=== PATIENT | male | born 1950 | race Caucasian/White ===

== ENCOUNTER 2019-08-29 20:34 | Inpatient (IN) | payer MEDICARE, OTHER ==
[~2019-08-29] VITALS: Ht 188 cm; Wt 142.4 kg
[~2019-08-29 20:34] MED LIST: ASPI1TAB PO; ASPI81TA45 PO; CARV12.543 PO; CARV6.252 PO; CETI10CA PO; HYDR-3342 PO; LEVO750T26 PO; LOSA1TAB19 PO; LOSA1TAB22 PO; NITR0.4T41 SL; OXYC-302 PO; PRED10TA14 PO; SPIR1TAB PO; SPIR25TA5 PO; TICA90TA PO
--- NOTE | 2019-08-29 20:59 | NUR ---
NEURO SURG CALLED [id number]
[2019-08-29] MEDS ORDERED: LEVETIRACETAM 500 MG in SODIUM CHLORIDE 0.9% 100 ML IV ONE (22:00)
[2019-08-29] MEDS ORDERED: SODIUM CHLORIDE FLUSH 10ML SYR IVF PRN (22:00)
[2019-08-29 22:26] LABS: PROTHROMBIN TIME 10.5 Seconds (9.6-11.5)
[2019-08-29] MEDS ORDERED: ONDANSETRON 2MG/ML, 2ML IVPush PRN (22:30)
--- NOTE | 2019-08-29 22:32 | NUR ---
PT RESTING IN BED WATCHING TV, PT A/O X4 WITH NO COMPLAINTS. PT PROVIDED A SANDWICH+CHIP+COOKIE FROM [employer] AT PT AND DR QUEEN.
[2019-08-30 00:05] VITALS: BP 131/60
[2019-08-30] MEDS ORDERED: IRBE1TAB13 PO (02:23)
[2019-08-30] MEDS ORDERED: ATOR-2 PO (02:23)
[2019-08-30 04:33] LABS: BASOPHILS # (AUTO) 0.03 x10^3/uL (0-0.1); BASOPHILS % (AUTO) 0 % (0-1); EOSINOPHILS # (AUTO) 0.04 x10^3/uL (0-0.4); EOSINOPHILS % (AUTO) 1 % (1-7); LYMPHOCYTES % (AUTO) 20 % (22-44); MD NO; MEAN CORPUSCULAR HEMOGLOBIN 32.9 pg (27.5-34.5); MEAN CORPUSCULAR HGB CONC 33.5 g/dL (33.2-36.2); MEAN CORPUSCULAR VOLUME 98.3 fL (81-97); MONOCYTES # (AUTO) 0.85 x10^3/uL (0.2-0.8); MONOCYTES % (AUTO) 11 % (2-9); NEUTROPHILS % (AUTO) 69 % (42-75); PLATELET COUNT 229 x10^3/uL (130-400); RED CELL DISTRIBUTION WIDTH 14.2 % (9.4-14.8)
[2019-08-30 04:46] LABS: ANION GAP 7 mmol/L (5-15); CHLORIDE 104 mmol/L (98-107); CREATININE 0.69 mg/dL (0.7-1.3)
[2019-08-30] MEDS ORDERED: ACETAMINOPHEN 325 MG TABLET PO ONE (05:00)
[2019-08-30] MEDS: LEVETIRACETAM 500 MG in SODIUM CHLORIDE 0.9% 100 ML IV SCH ×2 (08:58→20:43)
[2019-08-30 09:46] LABS: PLATELET (PFA) 213 x10^3/uL (130-400)
[2019-08-30] MEDS ORDERED: PHENYLEPHRINE 10 MG/ML ONE (11:00)
[2019-08-30] MEDS ORDERED: hydrALAzine 20 MG/ML, 1ML ONE (11:00)
[2019-08-30] MEDS ORDERED: ONDANSETRON 2MG/ML, 2ML ONE (11:00)
[2019-08-30] MEDS ORDERED: ROCURONIUM 10MG/ML,5ML ONE (11:00)
[2019-08-30] MEDS ORDERED: PROPOFOL 10 MG/ML, 20ML ONE (11:00)
[2019-08-30] MEDS ORDERED: SUGAMMADEX 200 MG/2 ML IVPush ONE (11:00)
[2019-08-30 11:18] LABS: ADP CARTRIDGE > 300 SECONDS (64-123)
[2019-08-30] MEDS ORDERED: THROMBIN 5,000 UNIT VIAL TP ONE ×2 (14:10→16:15)
[2019-08-30] MEDS ORDERED: BUPIVACAINE/PF 0.5% ONE (14:10)
[2019-08-30] MEDS ORDERED: BACITRACIN 50,000 UNIT ONE (14:10)
[2019-08-30] MEDS ORDERED: EPINEPHRINE 1 MG/ML, 1ML ONE (14:10)
[2019-08-30] MEDS ORDERED: FENTANYL PF 250 MCG/5ML ONE (14:35)
[2019-08-30] MEDS: hydrALAzine 20 MG/ML, 1ML IV PRN ×3 (14:38→20:28)
[2019-08-30] MEDS ORDERED: ACETAMINOPHEN 325 MG TABLET PO PRN ×3 (16:00→18:30)
[2019-08-30] MEDS ORDERED: hydrALAzine 20 MG/ML, 1ML IV PRN (16:00)
[2019-08-30] MEDS ORDERED: PROMETHAZINE 25 MG/ML, 1ML IV PRN (16:00)
[2019-08-30] MEDS ORDERED: HALOPERIDOL 5 MG/ML IV PRN (16:00)
[2019-08-30] MEDS ORDERED: FENTANYL PF 100 MCG/2ML IV PRN (16:00)
[2019-08-30] MEDS ORDERED: HYDROmorphone 2 MG/ML, 1ML IVPush PRN (16:00)
[2019-08-30] MEDS ORDERED: OXYcodone 5 MG/5 ML ORAL.SOL UDC PO PRN (16:00)
[2019-08-30] MEDS ORDERED: MEPERIDINE/PF 25MG/ML,1ML IVPush PRN (16:00)
[2019-08-30] MEDS ORDERED: BACITRACIN 50,000 UNIT IRRIG ONE (16:14)
[2019-08-30] MEDS ORDERED: BUPIVACAINE/PF 0.5% INFIL ONE (16:14)
[2019-08-30] MEDS ORDERED: THROMBIN (RECOMBINANT) 20,000 UNIT VIAL TP ONE ×2 (16:18→16:27)
[2019-08-30] MEDS ORDERED: BACITRACIN OINT 500U/GM, 15 GM ONE (16:44)
[2019-08-30] MEDS ORDERED: MEPERIDINE/PF 100 MG/ML ONE (17:03)
[2019-08-30 17:25] VITALS: BP 151/87
[2019-08-30 17:40] VITALS: BP 158/78
[2019-08-30 17:47] VITALS: BP 150/70
[2019-08-30] MEDS ORDERED: NITROPRUSSIDE 50 MG in DEXTROSE 5% 248 ML IV PRN (18:30)
[2019-08-30] MEDS ORDERED: ACETAMINOPHEN 650 MG SUPP PR PRN ×2 (18:30)
[2019-08-30] MEDS ORDERED: BISACODYL 10 MG SUPP PR PRN (18:30)
[2019-08-30] MEDS ORDERED: MAGNESIUM HYDROXIDE 8%, 30ML UDC PO PRN (18:30)
[2019-08-30] MEDS ORDERED: LABETALOL 250 MG in DEXTROSE 5% 200 ML IV PRN (18:30)
[2019-08-30] MEDS: HYDROmorphone 2 MG/ML, 1ML IV PRN (19:32)
[2019-08-30] MEDS: CEFAZOLIN PMX 1GM/50ML 50 ML IVPB SCH (21:50)
[2019-08-31] MEDS: HYDROmorphone 2 MG/ML, 1ML IV PRN ×3 (00:32→05:09)
[2019-08-31] MEDS: hydrALAzine 20 MG/ML, 1ML IV PRN ×2 (02:38→18:24)
[2019-08-31] MEDS: CEFAZOLIN PMX 1GM/50ML 50 ML IVPB SCH (05:05)
[2019-08-31 06:19] LABS: BASOPHILS # (AUTO) 0.02 x10^3/uL (0-0.1); BASOPHILS % (AUTO) 0 % (0-1); EOSINOPHILS % (AUTO) 0 % (1-7); LYMPHOCYTES % (AUTO) 9 % (22-44); MD NO; MEAN CORPUSCULAR HEMOGLOBIN 32.3 pg (27.5-34.5); MEAN CORPUSCULAR HGB CONC 33.3 g/dL (33.2-36.2); MEAN CORPUSCULAR VOLUME 97.1 fL (81-97); MEAN PLATELET VOLUME 6.8 fL (7.4-10.4); MONOCYTES # (AUTO) 0.74 x10^3/uL (0.2-0.8); MONOCYTES % (AUTO) 7 % (2-9); NEUTROPHILS # (AUTO) 9.14 x10^3/uL (1.8-6.8); NEUTROPHILS % (AUTO) 84 % (42-75); PLATELET COUNT 267 x10^3/uL (130-400); RED BLOOD COUNT 3.82 x10^6/uL (4.38-5.82); RED CELL DISTRIBUTION WIDTH 13.8 % (9.4-14.8)
[2019-08-31 06:27] LABS: ALANINE AMINOTRANSFERASE 28 U/L (12-78); ALBUMIN 3.3 g/dL (3.4-5.0); ANION GAP 5 mmol/L (5-15); CALCIUM 7.5 mg/dL (8.5-10.1); CHLORIDE 105 mmol/L (98-107)
[2019-08-31 06:29] LABS: ALKALINE PHOSPHATASE 75 U/L (45-117); CREATININE 0.63 mg/dL (0.7-1.3); TOTAL PROTEIN 6.8 g/dL (6.4-8.2)
[2019-08-31] MEDS: SENNA/DOCUSATE TABLET PO SCH (07:45)
[2019-08-31] MEDS: POTASSIUM CHLORIDE 20 MEQ TAB.ER.PRT PO SCH ×2 (07:45→18:05)
[2019-08-31] MEDS: OXYcodone/APAP 5/325MG TABLET PO PRN ×4 (07:45→23:34)
[2019-08-31] MEDS ORDERED: IRBESARTAN HCTZ PO SCH (09:00)
[2019-08-31] MEDS: LEVETIRACETAM 500 MG in SODIUM CHLORIDE 0.9% 100 ML IV SCH ×2 (09:15→21:19)
[2019-08-31] MEDS: CARVEDILOL 6.25 MG TABLET PO SCH ×2 (09:15→21:19)
[2019-08-31] MEDS: HYDROCHLOROTHIAZIDE 12.5 MG CAPSULE PO SCH (09:18)
[2019-08-31] MEDS: IRBESARTAN 300 MG TABLET PO SCH (09:57)
[2019-08-31] MEDS: ONDANSETRON 2MG/ML, 2ML IV PRN (16:29)
[2019-09-01] MEDS: hydrALAzine 20 MG/ML, 1ML IV PRN ×2 (03:05→10:45)
[2019-09-01] MEDS: OXYcodone/APAP 5/325MG TABLET PO PRN ×5 (03:53→23:54)
[2019-09-01] MEDS ORDERED: LEVETIRACETAM 500 MG in SODIUM CHLORIDE 0.9% 100 ML IV ONE (04:30)
[2019-09-01 04:50] LABS: BASOPHILS # (AUTO) 0.01 x10^3/uL (0-0.1); BASOPHILS % (AUTO) 0 % (0-1); EOSINOPHILS % (AUTO) 0 % (1-7); LYMPHOCYTES % (AUTO) 8 % (22-44); MD NO; MEAN CORPUSCULAR HEMOGLOBIN 32.9 pg (27.5-34.5); MEAN CORPUSCULAR HGB CONC 33.3 g/dL (33.2-36.2); MEAN CORPUSCULAR VOLUME 99.1 fL (81-97); MEAN PLATELET VOLUME 7.4 fL (7.4-10.4); MONOCYTES # (AUTO) 0.97 x10^3/uL (0.2-0.8); MONOCYTES % (AUTO) 9 % (2-9); NEUTROPHILS # (AUTO) 9.57 x10^3/uL (1.8-6.8); NEUTROPHILS % (AUTO) 84 % (42-75); PLATELET COUNT 258 x10^3/uL (130-400); RED BLOOD COUNT 3.75 x10^6/uL (4.38-5.82); RED CELL DISTRIBUTION WIDTH 13.6 % (9.4-14.8)
[2019-09-01 05:03] LABS: ALBUMIN 3.1 g/dL (3.4-5.0); ANION GAP 5 mmol/L (5-15); CALCIUM 7.8 mg/dL (8.5-10.1); CHLORIDE 101 mmol/L (98-107)
[2019-09-01 05:06] LABS: ALANINE AMINOTRANSFERASE 25 U/L (12-78); ALKALINE PHOSPHATASE 73 U/L (45-117); BILIRUBIN,TOTAL 1.5 mg/dL (0.2-1.0); CREATININE 0.43 mg/dL (0.7-1.3); TOTAL PROTEIN 6.9 g/dL (6.4-8.2)
[2019-09-01] MEDS: IRBESARTAN 300 MG TABLET PO SCH (08:30)
[2019-09-01] MEDS: HYDROCHLOROTHIAZIDE 12.5 MG CAPSULE PO SCH (08:30)
[2019-09-01] MEDS: TAMSULOSIN 0.4 MG CAP.ER.24H PO SCH (08:30)
[2019-09-01] MEDS: CARVEDILOL 6.25 MG TABLET PO SCH ×2 (08:30→20:44)
[2019-09-01] MEDS: SENNA/DOCUSATE TABLET PO SCH (08:30)
[2019-09-01] MEDS: LEVETIRACETAM 1,000 MG in SODIUM CHLORIDE 0.9% 100 ML IV SCH ×2 (10:15→20:43)
[2019-09-01] MEDS ORDERED: hydrALAzine 20 MG/ML, 1ML IV PRN (11:00)
[2019-09-01] MEDS: ONDANSETRON 2MG/ML, 2ML IV PRN (11:03)
[2019-09-01] MEDS ORDERED: SODIUM CHLORIDE 3% 500 ML IV PRN ×4 (17:30→23:45)
[2019-09-01 18:17] LABS: ANION GAP 5 mmol/L (5-15); CALCIUM 7.8 mg/dL (8.5-10.1); CHLORIDE 97 mmol/L (98-107)
[2019-09-01 18:18] LABS: CREATININE 0.53 mg/dL (0.7-1.3)
[2019-09-01] MEDS: ACETAMINOPHEN 325 MG TABLET PO PRN (18:41)
[2019-09-01 23:26] LABS: ANION GAP 5 mmol/L (5-15); CHLORIDE 97 mmol/L (98-107); CREATININE 0.61 mg/dL (0.7-1.3)
[2019-09-02] MEDS: hydrALAzine 20 MG/ML, 1ML IV PRN ×3 (00:09→20:04)
[2019-09-02] MEDS: OXYcodone/APAP 5/325MG TABLET PO PRN (04:06)
[2019-09-02 06:34] LABS: ANION GAP 6 mmol/L (5-15); CALCIUM 7.7 mg/dL (8.5-10.1); CHLORIDE 100 mmol/L (98-107); CREATININE 0.47 mg/dL (0.7-1.3)
[2019-09-02] MEDS ORDERED: SODIUM CHLORIDE 3% 500 ML IV PRN (07:00)
[2019-09-02] MEDS ORDERED: PANTOPRAZOLE 40 MG IV IVPush SCH (09:00)
[2019-09-02] MEDS: IRBESARTAN 300 MG TABLET PO SCH (09:00)
[2019-09-02] MEDS: POTASSIUM CHLORIDE 20 MEQ TAB.ER.PRT PO SCH ×2 (09:10→16:11)
[2019-09-02] MEDS: CARVEDILOL 6.25 MG TABLET PO SCH ×2 (09:10→20:45)
[2019-09-02] MEDS: SENNA/DOCUSATE TABLET PO SCH (09:11)
[2019-09-02] MEDS: TAMSULOSIN 0.4 MG CAP.ER.24H PO SCH (09:11)
[2019-09-02] MEDS: HYDROCHLOROTHIAZIDE 12.5 MG CAPSULE PO SCH (09:11)
[2019-09-02] MEDS: ACETAMINOPHEN 325 MG TABLET PO PRN ×3 (09:14→23:39)
[2019-09-02] MEDS: LEVETIRACETAM 1,000 MG in SODIUM CHLORIDE 0.9% 100 ML IV SCH ×2 (09:43→20:47)
[2019-09-02 11:04] LABS: ANION GAP 4 mmol/L (5-15); CALCIUM 7.3 mg/dL (8.5-10.1); CHLORIDE 103 mmol/L (98-107); CREATININE 0.59 mg/dL (0.7-1.3)
[2019-09-02] MEDS: SODIUM CHLORIDE 3% 500 ML IV PRN ×2 (14:47→22:59)
[2019-09-02] MEDS: PIPERACILLIN/TAZO/PMX 3.375GM 50 ML IV SCH ×2 (16:00→20:47)
[2019-09-02 16:06] LABS: ANION GAP 4 mmol/L (5-15); CALCIUM 7.5 mg/dL (8.5-10.1); CHLORIDE 103 mmol/L (98-107); CREATININE 0.56 mg/dL (0.7-1.3)
[2019-09-02] MEDS: ENALAPRILAT 1.25 MG/ML, 2ML IVPush PRN ×2 (20:39→21:04)
[2019-09-02] MEDS: ONDANSETRON 2MG/ML, 2ML IV PRN (23:46)
[2019-09-03 00:57] LABS: FIO2 35.4 %
[2019-09-03] MEDS: hydrALAzine 20 MG/ML, 1ML IV PRN ×2 (02:19→21:09)
[2019-09-03] MEDS: ENALAPRILAT 1.25 MG/ML, 2ML IVPush PRN (02:49)
[2019-09-03] MEDS: PIPERACILLIN/TAZO/PMX 3.375GM 50 ML IV SCH ×4 (02:55→21:09)
[2019-09-03] MEDS: PANTOPRAZOLE 20MG TABLET PO SCH (05:34)
[2019-09-03] MEDS: ACETAMINOPHEN 325 MG TABLET PO PRN ×3 (05:34→21:09)
[2019-09-03] MEDS: SODIUM CHLORIDE 3% 500 ML IV PRN ×3 (06:15→21:39)
[2019-09-03] MEDS: IRBESARTAN 300 MG TABLET PO SCH (08:47)
[2019-09-03] MEDS: SENNA/DOCUSATE TABLET PO SCH (08:47)
[2019-09-03] MEDS: CARVEDILOL 6.25 MG TABLET PO SCH (08:56)
[2019-09-03] MEDS: LEVETIRACETAM 1,000 MG in SODIUM CHLORIDE 0.9% 100 ML IV SCH ×2 (08:56→21:09)
[2019-09-03] MEDS: HYDROCHLOROTHIAZIDE 12.5 MG CAPSULE PO SCH (08:56)
[2019-09-03] MEDS: TAMSULOSIN 0.4 MG CAP.ER.24H PO SCH (08:56)
--- NOTE | 2019-09-03 13:05 | NUR ---
REC CHOPPED/THIN LIQUIDS; ORANGE SHEET WITH DIET RECS AND SWALLOW STRATEGIES POSTED AT BEDSIDE. Addendum: 09/03/19 at 1306 by Maria Ines AGUIRRE Amended: Links added.
[2019-09-03] MEDS: CARVEDILOL 12.5 MG TABLET PO SCH (21:09)
[2019-09-04] MEDS: hydrALAzine 20 MG/ML, 1ML IV PRN ×5 (02:05→14:57)
[2019-09-04] MEDS: ENALAPRILAT 1.25 MG/ML, 2ML IVPush PRN ×3 (02:33→10:03)
[2019-09-04] MEDS: PIPERACILLIN/TAZO/PMX 3.375GM 50 ML IV SCH ×4 (03:02→20:12)
[2019-09-04] MEDS: SODIUM CHLORIDE 3% 500 ML IV PRN ×3 (03:35→22:40)
[2019-09-04] MEDS: PANTOPRAZOLE 20MG TABLET PO SCH (06:07)
[2019-09-04 07:57] LABS: ANION GAP 5 mmol/L (5-15); CALCIUM 7.3 mg/dL (8.5-10.1); CHLORIDE 109 mmol/L (98-107)
[2019-09-04 07:58] LABS: CREATININE 0.42 mg/dL (0.7-1.3)
[2019-09-04] MEDS: IRBESARTAN 300 MG TABLET PO SCH (09:00)
[2019-09-04] MEDS: SENNA/DOCUSATE TABLET PO SCH (09:42)
[2019-09-04] MEDS: HYDROCHLOROTHIAZIDE 12.5 MG CAPSULE PO SCH (09:42)
[2019-09-04] MEDS: HEPARIN 5,000 UNITS/ML, 1ML SQ SCH ×2 (09:42→16:30)
[2019-09-04] MEDS: CARVEDILOL 12.5 MG TABLET PO SCH ×2 (09:43→20:12)
[2019-09-04] MEDS: DOXAZOSIN 2MG TABLET PO SCH (09:43)
[2019-09-04] MEDS: TAMSULOSIN 0.4 MG CAP.ER.24H PO SCH (09:43)
[2019-09-04] MEDS ORDERED: GADOTERATE 10 MMOL/20 ML SYR ONE (10:58)
[2019-09-04] MEDS: LEVETIRACETAM 1,000 MG in SODIUM CHLORIDE 0.9% 100 ML IV SCH (11:19)
[2019-09-04] MEDS ORDERED: FENTANYL PF 100 MCG/2ML IVPush PRN (15:30)
[2019-09-04] MEDS ORDERED: NITROPRUSSIDE 100 MG in DEXTROSE 5% 246 ML IV PRN (16:00)
[2019-09-04] MEDS ORDERED: POTASSIUM CHLORIDE 20 MEQ TAB.ER.PRT PO SCH (17:00)
[2019-09-04] MEDS ORDERED: OMNIPAQUE 350 MG/ML, 100ML BOTTLE ONE (18:21)
[2019-09-04] MEDS: AMLODIPINE 5 MG TABLET PO SCH (20:12)
[2019-09-04] MEDS: LEVETIRACETAM 500 MG TABLET PO SCH (20:13)
[2019-09-05] MEDS: HEPARIN 5,000 UNITS/ML, 1ML SQ SCH ×3 (00:27→16:03)
[2019-09-05] MEDS: PIPERACILLIN/TAZO/PMX 3.375GM 50 ML IV SCH ×4 (02:53→20:55)
[2019-09-05 04:16] LABS: BASOPHILS # (AUTO) 0.02 x10^3/uL (0-0.1); BASOPHILS % (AUTO) 0 % (0-1); EOSINOPHILS % (AUTO) 0 % (1-7); LYMPHOCYTES % (AUTO) 12 % (22-44); MD NO; MEAN CORPUSCULAR HEMOGLOBIN 32.7 pg (27.5-34.5); MEAN CORPUSCULAR HGB CONC 32.9 g/dL (33.2-36.2); MEAN CORPUSCULAR VOLUME 99.3 fL (81-97); MEAN PLATELET VOLUME 6.9 fL (7.4-10.4); MONOCYTES # (AUTO) 0.53 x10^3/uL (0.2-0.8); MONOCYTES % (AUTO) 7 % (2-9); NEUTROPHILS # (AUTO) 6.62 x10^3/uL (1.8-6.8); NEUTROPHILS % (AUTO) 81 % (42-75); PLATELET COUNT 313 x10^3/uL (130-400); RED BLOOD COUNT 3.66 x10^6/uL (4.38-5.82)
[2019-09-05] MEDS: ENALAPRILAT 1.25 MG/ML, 2ML IVPush PRN (04:18)
[2019-09-05 04:29] LABS: ALANINE AMINOTRANSFERASE 60 U/L (12-78); ALBUMIN 2.4 g/dL (3.4-5.0); ANION GAP 8 mmol/L (5-15); CALCIUM 7.4 mg/dL (8.5-10.1); CHLORIDE 108 mmol/L (98-107); CREATININE 0.64 mg/dL (0.7-1.3)
[2019-09-05 04:31] LABS: ALKALINE PHOSPHATASE 87 U/L (45-117); BILIRUBIN,TOTAL 0.9 mg/dL (0.2-1.0); TOTAL PROTEIN 6.9 g/dL (6.4-8.2)
[2019-09-05] MEDS: SODIUM CHLORIDE 3% 500 ML IV PRN (05:04)
[2019-09-05] MEDS: PANTOPRAZOLE 20MG TABLET PO SCH (05:36)
[2019-09-05] MEDS: hydrALAzine 20 MG/ML, 1ML IV PRN ×2 (07:37→16:31)
[2019-09-05] MEDS ORDERED: POTASSIUM CHLORIDE 20 MEQ TAB.ER.PRT PO SCH (08:00)
[2019-09-05] MEDS ORDERED: VANCOMYCIN PER PHARMACY MC PRN (08:00)
[2019-09-05] MEDS: FUROSEMIDE 40 MG/4 ML IV SCH ×2 (08:22→16:02)
[2019-09-05] MEDS ORDERED: PHARMACOKINETIC MONITORING MC PRN (10:00)
[2019-09-05] MEDS: POTASSIUM CHLORIDE 20 MEQ TAB.ER.PRT PO SCH ×3 (10:20→20:55)
[2019-09-05] MEDS: TAMSULOSIN 0.4 MG CAP.ER.24H PO SCH (10:21)
[2019-09-05] MEDS: SENNA/DOCUSATE TABLET PO SCH (10:21)
[2019-09-05] MEDS: LEVETIRACETAM 500 MG TABLET PO SCH ×2 (10:21→20:57)
[2019-09-05] MEDS: AMLODIPINE 5 MG TABLET PO SCH ×2 (10:21→20:56)
[2019-09-05] MEDS: DOXAZOSIN 2MG TABLET PO SCH (10:22)
[2019-09-05] MEDS: CARVEDILOL 12.5 MG TABLET PO SCH ×2 (10:22→20:57)
[2019-09-05] MEDS: SODIUM CHLORIDE 1 GM TABLET PO SCH ×3 (10:41→20:56)
[2019-09-05] MEDS: IRBESARTAN 300 MG TABLET PO SCH (11:00)
[2019-09-05] MEDS: VANCOMYCIN 2,200 MG in SODIUM CHLORIDE 0.9% 500 ML IV SCH (11:45)
[2019-09-06] MEDS: HEPARIN 5,000 UNITS/ML, 1ML SQ SCH ×3 (00:45→16:42)
[2019-09-06] MEDS: PIPERACILLIN/TAZO/PMX 3.375GM 50 ML IV SCH ×4 (03:04→21:19)
[2019-09-06] MEDS: PANTOPRAZOLE 20MG TABLET PO SCH (05:49)
[2019-09-06] MEDS: FUROSEMIDE 40 MG/4 ML IV SCH ×2 (08:46→16:42)
[2019-09-06] MEDS: SENNA/DOCUSATE TABLET PO SCH (08:46)
[2019-09-06] MEDS: CARVEDILOL 6.25 MG TABLET PO SCH ×2 (08:47→20:16)
[2019-09-06] MEDS: LEVETIRACETAM 500 MG TABLET PO SCH ×2 (08:47→20:16)
[2019-09-06] MEDS: POTASSIUM CHLORIDE 20 MEQ TAB.ER.PRT PO SCH ×3 (08:48→20:16)
[2019-09-06] MEDS: AMLODIPINE 5 MG TABLET PO SCH ×2 (08:48→20:16)
[2019-09-06] MEDS: DOXAZOSIN 2MG TABLET PO SCH (08:48)
[2019-09-06] MEDS: TAMSULOSIN 0.4 MG CAP.ER.24H PO SCH (08:49)
[2019-09-06] MEDS: IRBESARTAN 300 MG TABLET PO SCH (08:49)
[2019-09-06 09:53] LABS: ALBUMIN 2.1 g/dL (3.4-5.0); CALCIUM 7.2 mg/dL (8.5-10.1); CHLORIDE 106 mmol/L (98-107)
[2019-09-06 09:59] LABS: ALANINE AMINOTRANSFERASE 72 U/L (12-78); ALKALINE PHOSPHATASE 77 U/L (45-117); BILIRUBIN,TOTAL 0.7 mg/dL (0.2-1.0); CREATININE 0.55 mg/dL (0.7-1.3)
[2019-09-06 10:05] LABS: ANION GAP 5 mmol/L (5-15)
[2019-09-06 10:07] LABS: BASOPHILS # (AUTO) 0.02 x10^3/uL (0-0.1); BASOPHILS % (AUTO) 0 % (0-1); EOSINOPHILS # (AUTO) 0.04 x10^3/uL (0-0.4); EOSINOPHILS % (AUTO) 1 % (1-7); LYMPHOCYTES # (AUTO) 1.17 x10^3/uL (1-3.4); LYMPHOCYTES % (AUTO) 13 % (22-44); MD NO; MEAN CORPUSCULAR HEMOGLOBIN 31.9 pg (27.5-34.5); MEAN CORPUSCULAR HGB CONC 32.7 g/dL (33.2-36.2); MEAN CORPUSCULAR VOLUME 97.7 fL (81-97); MEAN PLATELET VOLUME 7.2 fL (7.4-10.4); MONOCYTES # (AUTO) 0.72 x10^3/uL (0.2-0.8); MONOCYTES % (AUTO) 8 % (2-9); NEUTROPHILS # (AUTO) 7.16 x10^3/uL (1.8-6.8); NEUTROPHILS % (AUTO) 79 % (42-75); PLATELET COUNT 288 x10^3/uL (130-400); RED BLOOD COUNT 3.07 x10^6/uL (4.38-5.82); RED CELL DISTRIBUTION WIDTH 14.1 % (9.4-14.8)
[2019-09-06] MEDS: SODIUM CHLORIDE 1 GM TABLET PO SCH ×3 (11:22→20:15)
[2019-09-06] MEDS: VANCOMYCIN 2,200 MG in SODIUM CHLORIDE 0.9% 500 ML IV SCH (11:22)
[2019-09-06] MEDS: hydrALAzine 20 MG/ML, 1ML IV PRN (14:09)
[2019-09-06] MEDS: ACETAMINOPHEN 325 MG TABLET PO PRN ×2 (14:10→20:15)
[2019-09-06] MEDS: HYDROmorphone 2 MG/ML, 1ML IV PRN (14:10)
[2019-09-07] MEDS: HEPARIN 5,000 UNITS/ML, 1ML SQ SCH ×3 (00:22→16:44)
[2019-09-07] MEDS: PIPERACILLIN/TAZO/PMX 3.375GM 50 ML IV SCH ×3 (03:08→16:44)
[2019-09-07] MEDS: ACETAMINOPHEN 325 MG TABLET PO PRN ×2 (04:07→21:41)
[2019-09-07 04:25] LABS: BASOPHILS # (AUTO) 0.09 x10^3/uL (0-0.1); BASOPHILS % (AUTO) 1 % (0-1); EOSINOPHILS # (AUTO) 0.08 x10^3/uL (0-0.4); EOSINOPHILS % (AUTO) 1 % (1-7); LYMPHOCYTES # (AUTO) 0.99 x10^3/uL (1-3.4); LYMPHOCYTES % (AUTO) 12 % (22-44); MD NO; MEAN CORPUSCULAR HEMOGLOBIN 32.9 pg (27.5-34.5); MEAN CORPUSCULAR HGB CONC 33.3 g/dL (33.2-36.2); MEAN CORPUSCULAR VOLUME 98.9 fL (81-97); MEAN PLATELET VOLUME 7.3 fL (7.4-10.4); MONOCYTES # (AUTO) 0.74 x10^3/uL (0.2-0.8); MONOCYTES % (AUTO) 9 % (2-9); NEUTROPHILS # (AUTO) 6.32 x10^3/uL (1.8-6.8); NEUTROPHILS % (AUTO) 77 % (42-75); PLATELET COUNT 296 x10^3/uL (130-400); RED CELL DISTRIBUTION WIDTH 14.2 % (9.4-14.8)
[2019-09-07 04:29] LABS: ANION GAP 4 mmol/L (5-15); CALCIUM 7.3 mg/dL (8.5-10.1); CHLORIDE 106 mmol/L (98-107); CREATININE 0.72 mg/dL (0.7-1.3)
[2019-09-07] MEDS: PANTOPRAZOLE 20MG TABLET PO SCH (05:55)
[2019-09-07] MEDS: FUROSEMIDE 40 MG/4 ML IV SCH ×2 (06:44→16:44)
[2019-09-07] MEDS: AMLODIPINE 5 MG TABLET PO SCH ×2 (07:59→21:42)
[2019-09-07] MEDS: DOXAZOSIN 2MG TABLET PO SCH (07:59)
[2019-09-07] MEDS: LEVETIRACETAM 500 MG TABLET PO SCH ×2 (08:28→21:42)
[2019-09-07] MEDS: SENNA/DOCUSATE TABLET PO SCH (08:29)
[2019-09-07] MEDS: TAMSULOSIN 0.4 MG CAP.ER.24H PO SCH (08:37)
[2019-09-07] MEDS: POTASSIUM CHLORIDE 20 MEQ TAB.ER.PRT PO SCH ×3 (08:37→21:42)
[2019-09-07] MEDS: SODIUM CHLORIDE 1 GM TABLET PO SCH ×2 (08:37→16:44)
[2019-09-07] MEDS: IRBESARTAN 300 MG TABLET PO SCH (08:38)
[2019-09-07] MEDS: CARVEDILOL 3.125 MG TABLET PO SCH ×2 (08:43→21:42)
[2019-09-07 12:15] VITALS: BP 185/95
[2019-09-07] MEDS: VANCOMYCIN 2,200 MG in SODIUM CHLORIDE 0.9% 500 ML IV SCH (13:02)
[2019-09-07 13:42] VITALS: BP 166/79
[2019-09-07] MEDS: ENALAPRILAT 1.25 MG/ML, 2ML IVPush PRN (13:48)
[2019-09-07 14:44] VITALS: BP 162/72
[2019-09-07 16:53] VITALS: BP 144/64
[2019-09-07 19:04] VITALS: BP 124/66
[2019-09-08] MEDS: SODIUM CHLORIDE 1 GM TABLET PO SCH ×4 (00:02→21:19)
[2019-09-08] MEDS: PIPERACILLIN/TAZO/PMX 3.375GM 50 ML IV SCH ×2 (00:02→06:15)
[2019-09-08 01:09] VITALS: BP 100/62
[2019-09-08] MEDS: HEPARIN 5,000 UNITS/ML, 1ML SQ SCH ×3 (01:40→16:10)
[2019-09-08] MEDS: PANTOPRAZOLE 20MG TABLET PO SCH (06:16)
[2019-09-08] MEDS: ACETAMINOPHEN 325 MG TABLET PO PRN ×2 (06:16→21:19)
[2019-09-08 06:35] VITALS: BP 145/67
[2019-09-08] MEDS: FUROSEMIDE 40 MG/4 ML IV SCH (08:07)
[2019-09-08] MEDS: DOXAZOSIN 2MG TABLET PO SCH (08:08)
[2019-09-08] MEDS: CARVEDILOL 3.125 MG TABLET PO SCH ×2 (08:08→21:10)
[2019-09-08] MEDS: POTASSIUM CHLORIDE 20 MEQ TAB.ER.PRT PO SCH ×3 (08:08→21:10)
[2019-09-08] MEDS: LEVETIRACETAM 500 MG TABLET PO SCH ×2 (08:09→21:10)
[2019-09-08] MEDS: SENNA/DOCUSATE TABLET PO SCH (08:10)
[2019-09-08] MEDS: TAMSULOSIN 0.4 MG CAP.ER.24H PO SCH (08:11)
[2019-09-08] MEDS: AMLODIPINE 5 MG TABLET PO SCH ×2 (08:11→21:09)
[2019-09-08] MEDS: IRBESARTAN 300 MG TABLET PO SCH (10:19)
[2019-09-08] MEDS ORDERED: VANCOMYCIN 2,200 MG in SODIUM CHLORIDE 0.9% 500 ML IV SCH (11:30)
[2019-09-08 12:40] VITALS: BP 165/74
[2019-09-08 16:07] VITALS: BP 161/78
[2019-09-08] MEDS ORDERED: FUROSEMIDE 40 MG/4 ML IV SCH (17:00)
[2019-09-08 18:21] VITALS: BP 145/74
[2019-09-08 18:53] VITALS: BP 133/71
[2019-09-09 00:55] VITALS: BP 115/65
[2019-09-09] MEDS: HEPARIN 5,000 UNITS/ML, 1ML SQ SCH ×3 (00:58→16:56)
[2019-09-09] MEDS: ACETAMINOPHEN 325 MG TABLET PO PRN ×2 (04:14→20:37)
[2019-09-09] MEDS: PANTOPRAZOLE 20MG TABLET PO SCH (05:43)
[2019-09-09 06:57] VITALS: BP 111/63
[2019-09-09] MEDS: DOXYCYCLINE 100MG CAP PO SCH ×2 (09:21→20:35)
[2019-09-09] MEDS: SENNA/DOCUSATE TABLET PO SCH (09:22)
[2019-09-09] MEDS: LEVETIRACETAM 500 MG TABLET PO SCH ×2 (09:25→20:36)
[2019-09-09] MEDS: DOXAZOSIN 2MG TABLET PO SCH (09:28)
[2019-09-09] MEDS: AMLODIPINE 5 MG TABLET PO SCH ×2 (09:29→20:36)
[2019-09-09] MEDS: CARVEDILOL 3.125 MG TABLET PO SCH ×2 (09:31→20:36)
[2019-09-09] MEDS: TAMSULOSIN 0.4 MG CAP.ER.24H PO SCH (09:32)
[2019-09-09] MEDS: FUROSEMIDE 20 MG TABLET PO SCH ×2 (09:35→16:38)
[2019-09-09] MEDS: IRBESARTAN 300 MG TABLET PO SCH (09:35)
[2019-09-09] MEDS: CEFTRIAXONE PMX 1GM/50ML 50 ML IV SCH (09:42)
[2019-09-09 12:23] VITALS: BP 119/70
[2019-09-09 19:17] VITALS: BP 115/63
[2019-09-09] MEDS: SODIUM CHLORIDE 1 GM TABLET PO SCH (20:36)
[2019-09-10] MEDS: HEPARIN 5,000 UNITS/ML, 1ML SQ SCH ×3 (00:24→17:40)
[2019-09-10 01:47] VITALS: BP 126/69
[2019-09-10] MEDS: PANTOPRAZOLE 20MG TABLET PO SCH (04:46)
[2019-09-10 07:07] VITALS: BP 158/71
[2019-09-10 07:43] LABS: ALANINE AMINOTRANSFERASE 143 U/L (12-78); ALBUMIN 2.4 g/dL (3.4-5.0); ANION GAP 4 mmol/L (5-15); CALCIUM 8.4 mg/dL (8.5-10.1); CHLORIDE 102 mmol/L (98-107); CREATININE 0.71 mg/dL (0.7-1.3)
[2019-09-10 07:46] LABS: ALKALINE PHOSPHATASE 108 U/L (45-117); BASOPHILS # (AUTO) 0.02 x10^3/uL (0-0.1); BASOPHILS % (AUTO) 0 % (0-1); BILIRUBIN,TOTAL 0.5 mg/dL (0.2-1.0); EOSINOPHILS # (AUTO) 0.11 x10^3/uL (0-0.4); EOSINOPHILS % (AUTO) 2 % (1-7); LYMPHOCYTES # (AUTO) 1.14 x10^3/uL (1-3.4); LYMPHOCYTES % (AUTO) 17 % (22-44); MD NO; MEAN CORPUSCULAR HGB CONC 33.1 g/dL (33.2-36.2); MEAN CORPUSCULAR VOLUME 96.5 fL (81-97); MONOCYTES # (AUTO) 0.47 x10^3/uL (0.2-0.8); MONOCYTES % (AUTO) 7 % (2-9); NEUTROPHILS # (AUTO) 4.84 x10^3/uL (1.8-6.8); NEUTROPHILS % (AUTO) 74 % (42-75); PLATELET COUNT 500 x10^3/uL (130-400); RED BLOOD COUNT 3.46 x10^6/uL (4.38-5.82); RED CELL DISTRIBUTION WIDTH 14.2 % (9.4-14.8); TOTAL PROTEIN 6.6 g/dL (6.4-8.2)
[2019-09-10] MEDS: SENNA/DOCUSATE TABLET PO SCH (08:06)
[2019-09-10] MEDS: DOXYCYCLINE 100MG CAP PO SCH ×2 (08:06→20:00)
[2019-09-10] MEDS: IRBESARTAN 300 MG TABLET PO SCH (08:07)
[2019-09-10] MEDS: SODIUM CHLORIDE 1 GM TABLET PO SCH ×2 (08:08→20:00)
[2019-09-10] MEDS: DOXAZOSIN 2MG TABLET PO SCH (08:09)
[2019-09-10] MEDS: AMLODIPINE 5 MG TABLET PO SCH ×2 (08:09→20:00)
[2019-09-10] MEDS: LEVETIRACETAM 500 MG TABLET PO SCH ×2 (08:10→20:00)
[2019-09-10] MEDS: CARVEDILOL 3.125 MG TABLET PO SCH ×2 (08:11→19:59)
[2019-09-10] MEDS: FUROSEMIDE 20 MG TABLET PO SCH ×2 (08:11→17:41)
[2019-09-10] MEDS: TAMSULOSIN 0.4 MG CAP.ER.24H PO SCH (08:14)
[2019-09-10] MEDS: CEFTRIAXONE PMX 1GM/50ML 50 ML IV SCH (08:15)
[2019-09-10 12:11] VITALS: BP 129/66
[2019-09-10 17:44] VITALS: BP 117/69
[2019-09-10 18:59] VITALS: BP 98/61
[2019-09-10 20:00] VITALS: BP 112/64
[2019-09-11] MEDS: HEPARIN 5,000 UNITS/ML, 1ML SQ SCH ×3 (01:51→17:48)
[2019-09-11 02:21] VITALS: BP 121/69
[2019-09-11] MEDS: PANTOPRAZOLE 20MG TABLET PO SCH (05:22)
[2019-09-11 07:38] LABS: BASOPHILS # (AUTO) 0.02 x10^3/uL (0-0.1); BASOPHILS % (AUTO) 0 % (0-1); EOSINOPHILS # (AUTO) 0.12 x10^3/uL (0-0.4); EOSINOPHILS % (AUTO) 1 % (1-7); LYMPHOCYTES # (AUTO) 1.36 x10^3/uL (1-3.4); LYMPHOCYTES % (AUTO) 16 % (22-44); MD NO; MEAN CORPUSCULAR HEMOGLOBIN 31.5 pg (27.5-34.5); MEAN CORPUSCULAR HGB CONC 32.5 g/dL (33.2-36.2); MEAN CORPUSCULAR VOLUME 96.9 fL (81-97); MEAN PLATELET VOLUME 6.9 fL (7.4-10.4); MONOCYTES # (AUTO) 0.63 x10^3/uL (0.2-0.8); MONOCYTES % (AUTO) 8 % (2-9); NEUTROPHILS # (AUTO) 6.16 x10^3/uL (1.8-6.8); NEUTROPHILS % (AUTO) 74 % (42-75); PLATELET COUNT 563 x10^3/uL (130-400); RED BLOOD COUNT 3.34 x10^6/uL (4.38-5.82); RED CELL DISTRIBUTION WIDTH 14.2 % (9.4-14.8)
[2019-09-11 07:41] VITALS: BP 133/76
[2019-09-11 07:55] LABS: CHLORIDE 104 mmol/L (98-107)
[2019-09-11 08:05] LABS: ALANINE AMINOTRANSFERASE 172 U/L (12-78); ALBUMIN 2.4 g/dL (3.4-5.0); ALKALINE PHOSPHATASE 110 U/L (45-117); ANION GAP 3 mmol/L (5-15); BILIRUBIN,TOTAL 0.4 mg/dL (0.2-1.0); CALCIUM 8.1 mg/dL (8.5-10.1); CREATININE 0.74 mg/dL (0.7-1.3); TOTAL PROTEIN 6.4 g/dL (6.4-8.2)
[2019-09-11 09:01] VITALS: BP 125/74
[2019-09-11] MEDS: CEFTRIAXONE PMX 1GM/50ML 50 ML IV SCH (09:02)
[2019-09-11] MEDS: LEVETIRACETAM 500 MG TABLET PO SCH ×2 (09:04→20:08)
[2019-09-11] MEDS: IRBESARTAN 300 MG TABLET PO SCH (09:07)
[2019-09-11] MEDS: AMLODIPINE 5 MG TABLET PO SCH ×2 (09:09→20:07)
[2019-09-11] MEDS: DOXYCYCLINE 100MG CAP PO SCH ×2 (09:09→20:08)
[2019-09-11] MEDS: FUROSEMIDE 20 MG TABLET PO SCH ×2 (09:09→17:48)
[2019-09-11] MEDS: SODIUM CHLORIDE 1 GM TABLET PO SCH ×2 (09:09→20:07)
[2019-09-11] MEDS: TAMSULOSIN 0.4 MG CAP.ER.24H PO SCH (09:11)
[2019-09-11] MEDS: DOXAZOSIN 2MG TABLET PO SCH (09:11)
[2019-09-11] MEDS: CARVEDILOL 3.125 MG TABLET PO SCH ×2 (09:12→20:08)
[2019-09-11] MEDS: SENNA/DOCUSATE TABLET PO SCH (09:12)
[2019-09-11 12:38] VITALS: BP 128/69
[2019-09-11 17:47] VITALS: BP 155/80
[2019-09-11 20:10] VITALS: BP 111/56
[2019-09-11 20:52] LABS: MICROSCOPIC NOT IND
[2019-09-11 20:56] LABS: CULTURE INDICATED? NO
[2019-09-12] MEDS: HEPARIN 5,000 UNITS/ML, 1ML SQ SCH ×2 (01:05→10:39)
[2019-09-12 01:17] VITALS: BP 130/70
[2019-09-12] MEDS: PANTOPRAZOLE 20MG TABLET PO SCH (05:03)
[2019-09-12 06:02] LABS: BASOPHILS # (AUTO) 0.04 x10^3/uL (0-0.1); BASOPHILS % (AUTO) 1 % (0-1); EOSINOPHILS # (AUTO) 0.17 x10^3/uL (0-0.4); EOSINOPHILS % (AUTO) 2 % (1-7); LYMPHOCYTES # (AUTO) 1.15 x10^3/uL (1-3.4); LYMPHOCYTES % (AUTO) 14 % (22-44); MD NO; MEAN CORPUSCULAR HEMOGLOBIN 32.4 pg (27.5-34.5); MEAN CORPUSCULAR HGB CONC 32.8 g/dL (33.2-36.2); MEAN CORPUSCULAR VOLUME 98.5 fL (81-97); MEAN PLATELET VOLUME 7.2 fL (7.4-10.4); MONOCYTES # (AUTO) 0.57 x10^3/uL (0.2-0.8); MONOCYTES % (AUTO) 7 % (2-9); NEUTROPHILS % (AUTO) 77 % (42-75); PLATELET COUNT 588 x10^3/uL (130-400); RED BLOOD COUNT 3.19 x10^6/uL (4.38-5.82); RED CELL DISTRIBUTION WIDTH 14.4 % (9.4-14.8)
[2019-09-12 06:19] LABS: ALANINE AMINOTRANSFERASE 194 U/L (12-78); ALBUMIN 2.3 g/dL (3.4-5.0); ANION GAP 4 mmol/L (5-15); CALCIUM 8.2 mg/dL (8.5-10.1); CHLORIDE 104 mmol/L (98-107); CREATININE 0.68 mg/dL (0.7-1.3)
[2019-09-12 06:22] LABS: ALKALINE PHOSPHATASE 112 U/L (45-117); BILIRUBIN,TOTAL 0.5 mg/dL (0.2-1.0); TOTAL PROTEIN 6.4 g/dL (6.4-8.2)
[2019-09-12 06:39] VITALS: BP 108/63
[2019-09-12] MEDS: DOXAZOSIN 2MG TABLET PO SCH (09:00)
[2019-09-12] MEDS: SENNA/DOCUSATE TABLET PO SCH (09:00)
[2019-09-12 10:11] VITALS: BP 101/62
[2019-09-12] MEDS: IRBESARTAN 300 MG TABLET PO SCH (10:20)
[2019-09-12] MEDS ORDERED: FUROSEMIDE 20 MG TABLET PO SCH (10:30)
[2019-09-12] MEDS: LEVETIRACETAM 500 MG TABLET PO SCH (10:34)
[2019-09-12] MEDS: TAMSULOSIN 0.4 MG CAP.ER.24H PO SCH (10:36)
[2019-09-12] MEDS: DOXYCYCLINE 100MG CAP PO SCH (10:37)
[2019-09-12] MEDS: SODIUM CHLORIDE 1 GM TABLET PO SCH (10:37)
[2019-09-12] MEDS: CARVEDILOL 3.125 MG TABLET PO SCH (10:37)
[2019-09-12] MEDS: CEFTRIAXONE PMX 1GM/50ML 50 ML IV SCH (10:39)
[2019-09-12 12:32] VITALS: BP 123/68
[2019-09-12] MEDS ORDERED: IRBE300T40 PO (14:06)
[2019-09-12] MEDS ORDERED: FURO20TA3 PO (14:06)
[2019-09-12] MEDS ORDERED: LEVE500T53 PO (14:06)
[2019-09-12] MEDS ORDERED: BISA10SU4 PR (14:06)
[2019-09-12] MEDS ORDERED: DOXY100C2 PO (14:06)
[2019-09-12] MEDS ORDERED: TAMS-11 PO (14:06)
[2019-09-12] MEDS ORDERED: SODI1TAB PO (14:06)
[2019-09-12] MEDS ORDERED: CEFD300C37 PO (14:06)
[2019-09-12] MEDS ORDERED: CARV3.1212 PO (14:06)
[2019-09-12] MEDS ORDERED: PANT20TA3 PO (14:06)
[2019-09-12] MEDS ORDERED: AMLO-150 PO (14:06)
[2019-09-12] MEDS ORDERED: FLU VACC QS2019-20 36MOS UP/PF 0.5 ML IM-VACC ONE (17:00)
[2019-09-13] MEDS ORDERED: FUROSEMIDE 20 MG TABLET PO SCH (09:00)
[2019-09-13] MEDS ORDERED: AMLODIPINE 5 MG TABLET PO SCH (09:00)
== END 2019-09-12 17:18 | DRG 25 ==
LOC: ED 21:25 → EDIP 21:39 → CCU 08-30 00:07 → 4EST 09-07 12:17
PROVIDERS: ADMIT Internal Medicine; ATTEND Hospitalist
PROC: 00Q20ZZ Repair Dura Mater, Open Approach (ICD-10-PCS; 2019-08-30)
PROC: 30233R1 Transfusion of Nonautologous Platelets into Peripheral Vein, Percutaneous Approach (ICD-10-PCS; 2019-08-30)
PROC: 00C40ZZ Extirpation of Matter from Intracranial Subdural Space, Open Approach (ICD-10-PCS; principal; 2019-08-30 15:00)
PROC: 0T9B70Z Drainage of Bladder with Drainage Device, Via Natural or Artificial Opening (ICD-10-PCS; 2019-09-11)
DX: S06.5X0A Traumatic subdural hemorrhage without loss of consciousness, initial encounter (principal); G93.5 Compression of brain; I50.33 Acute on chronic diastolic (congestive) heart failure; J18.9 Pneumonia, unspecified organism; I82.612 Acute embolism and thrombosis of superficial veins of left upper extremity; G81.91 Hemiplegia, unspecified affecting right dominant side; I11.0 Hypertensive heart disease with heart failure; G47.33 Obstructive sleep apnea (adult) (pediatric); E78.00 Pure hypercholesterolemia, unspecified; E78.5 Hyperlipidemia, unspecified; K76.0 Fatty (change of) liver, not elsewhere classified; R56.9 Unspecified convulsions; I25.10 Atherosclerotic heart disease of native coronary artery without angina pectoris; W18.30XA Fall on same level, unspecified, initial encounter; Y93.89 Activity, other specified; Y92.89 Other specified places as the place of occurrence of the external cause; Y99.8 Other external cause status; Z90.49 Acquired absence of other specified parts of digestive tract; Z79.82 Long term (current) use of aspirin
CPT/HCPCS: 36415; 36600; 70450; 70553; 71045; 71275; 76700; 80048; 80053; 80074; 80202; 81003; 82140; 82803; 82805; 82962; 83735; 84100; 84295; 84550; 85014; 85025; 85049; 85576; 85610; 85730; 86850; 86900; 87040; 87081; 90686; 93306; 93880; 93970; 94660; 95951; 96365; C1713; G0378; J0171; J0690; J0696; J1170; J1644; J1940; J1953; J2405; J2543; J2704; J3010; J3370; J7060; Q9967; 92523-GN; A9575; C1781; C9113; G0515-GN; J0360; J2175; J2370; J7040; J7050; P9035